=== PATIENT | male | born 1945 ===

== ENCOUNTER 2018-04-04 13:15 | Inpatient (IN) | payer OTHER ==
[~2018-04-04] VITALS: Ht 160 cm; Wt 68.0 kg
[2018-04-05] MEDS ORDERED: [UNRECOGNIZED DRUG - OTHER] PO (09:18)
[2018-04-12] MEDS ORDERED: ZESTORETIC 10-1 EACH PO (09:13)
[2018-04-13] MEDS ORDERED: DOCUSATE SODIU100 MG PO (08:07)
[2018-04-13] MEDS ORDERED: PERCOCET 5-3251 EACH PO (08:08)
[2018-04-13] MEDS ORDERED: CLONAZEPAM0.5 MG PO (08:08)
== END 2018-04-13 17:28 | disposition home or self-care (01) | DRG 454 ==
LOC: O/R 04-12 05:00 → SURH 04-12 05:00
PROVIDERS: ADMIT Orthopaedic Surgery Orthopaedic Surgery of the Spine
PROC: 0RG20A0 Fusion of 2 or more Cervical Vertebral Joints with Interbody Fusion Device, Anterior Approach, Anterior Column, Open Approach (ICD-10-PCS; 2018-04-12)
PROC: 0RG20J1 Fusion of 2 or more Cervical Vertebral Joints with Synthetic Substitute, Posterior Approach, Posterior Column, Open Approach (ICD-10-PCS; 2018-04-12)
PROC: 07DS3ZZ Extraction of Vertebral Bone Marrow, Percutaneous Approach (ICD-10-PCS; 2018-04-12)
PROC: 0RT30ZZ Resection of Cervical Vertebral Disc, Open Approach (ICD-10-PCS; principal; 2018-04-12 10:15)
DX: M47.12 Other spondylosis with myelopathy, cervical region (principal); M50.021 Cervical disc disorder at C4-C5 level with myelopathy

== ENCOUNTER 2024-02-16 10:30 | Inpatient (IN) | payer OTHER ==
[~2024-02-16] VITALS: Ht 91.4 cm; Wt 67.1 kg
[~2024-02-16 10:30] MED LIST: CLONAZEPAM0.5 MG PO; DOCUSATE SODIU100 MG PO; PERCOCET 5-3251 EACH PO; SIMVASTATIN5 MG; ZESTORETIC 10-1 EACH PO; [UNRECOGNIZED DRUG - OTHER] PO
[2024-02-16 10:31] VITALS: BP 113/75
[2024-02-21] MEDS ORDERED: PROMETHAZINE HCL 50 MG/ML AMPUL IM PRN (07:45)
[2024-02-21] MEDS ORDERED: 0.9 % SODIUM CHLORIDE 1,000 ML IV SCH (07:45)
[2024-02-21] MEDS ORDERED: ENALAPRILAT DIHYDRATE 1.25 MG/ML VIAL IV PRN (07:45)
[2024-02-21] MEDS ORDERED: AMOX-CLAV 875-1 EACH PO (07:47)
[2024-02-21] MEDS ORDERED: PERCOCET 5-3251 EACH PO (07:47)
[2024-02-21] MEDS ORDERED: COLACE100 MG PO (07:47)
[2024-02-21] MEDS ORDERED: ZOFRAN8 MG PO (07:47)
[2024-02-21] MEDS ORDERED: NEURONTIN800 MG PO (07:48)
[2024-02-21] MEDS ORDERED: GABAPENTIN100 M2 PO (07:48)
[2024-02-21] MEDS ORDERED: TAMSULOSIN HCL 0.4 MG CAP PO SCH (09:00)
[2024-02-21] MEDS ORDERED: DOCUSATE SODIUM 100MG CAP PO SCH (09:00)
[2024-02-21] MEDS ORDERED: VANCOMYCIN HCL 1,000 MG VIAL IV SCH (09:00)
[2024-02-21] MEDS ORDERED: METHYLPREDNISOLONE SOD SUCC 125 MG VIAL IV SCH (09:00)
[2024-02-21] MEDS ORDERED: CEFAZOLIN SODIUM 1,000 MG in 0.9 % SODIUM CHLORIDE 50 ML IV SCH (09:00)
[2024-02-21] MEDS ORDERED: METHYLPREDNISOLONE SOD SUCC 125 MG VIAL IV ONE ×2 (11:15)
[2024-02-21] MEDS ORDERED: HEMOSTATIC MATRIX WITH THROMBIN KIT TOP ONE (11:15)
[2024-02-21] MEDS ORDERED: VANCOMYCIN HCL 1,000 MG VIAL IV ONE (11:15)
[2024-02-21] MEDS ORDERED: CEFAZOLIN SODIUM 1,000 MG VIAL IV ONE (11:15)
[2024-02-21] MEDS ORDERED: METHYLPREDNISOLONE ACETATE 80 MG/ML VIAL IU ONE (11:15)
[2024-02-21] MEDS ORDERED: MORPHINE SULFATE 4 MG,MORPHINE SULFATE 2 MG IV SCH (12:00)
[2024-02-21] MEDS ORDERED: MORPHINE SULFATE 2 MG/ML CARTRIDGE IV ONE (13:55)
[2024-02-21] MEDS ORDERED: FAMOtidine 20 MG TABLET PO SCH (17:00)
[2024-02-21] MEDS ORDERED: ACETAMINOPHEN 500 MG GEL..CAP PO SCH (20:00)
[2024-02-21] MEDS ORDERED: GABAPENTIN 800 MG TABLET PO SCH (21:00)
[2024-02-22] VITALS (8 sets, daily range): BP systolic 112–163; BP diastolic 66–94; O2SAT 89–100
[2024-02-22] MEDS ORDERED: SODIUM CHLORIDE 0.45 % 1,000 ML IV SCH
[2024-02-22] MEDS ORDERED: OxyCODONE HCL 5 MG TABLET (ROXICODONE) PO PRN (06:01)
[2024-02-22 08:19] LABS: HEMATOCRIT 34.2 % (39.0-48.0); HEMOGLOBIN 11.9 g/dL (13-16.00); MEAN CELL VOLUME 88.8 fL (80.0-100.00); MEAN CORPUSCULAR HGB CONC 34.9 g/dl (32.0-36.0); PLATELET COUNT 144 K/uL (150-450); RED BLOOD COUNT 3.85 M/uL (4.00-6.00); RED CELL DISTRIBUTION WIDTH 14.1 % (11.5-14.5)
[2024-02-22 08:55] LABS: CALCIUM 8.1 mg/dL (8.5-10.1); CREATININE SERUM 0.88 mg/dL (0.70-1.30); GFR 83.32; POTASSIUM 3.85 mEq/L (3.5-5.1)
[2024-02-22] MEDS ORDERED: FAMOtidine 20 MG TABLET PO SCH (09:00)
[2024-02-23] VITALS: BP 113/71; O2SAT 97
[2024-02-23 02:18] VITALS: O2SAT 97
[2024-02-23 06:00] VITALS: O2SAT 99
[2024-02-23 08:25] VITALS: BP 136/67; O2SAT 96
[2024-02-23 09:29] VITALS: O2SAT 88
== END 2024-02-23 10:44 | disposition home or self-care (01) | DRG 428 ==
LOC: O/R 02-21 07:05 → SURH 02-21 10:30
PROVIDERS: ADMIT Orthopaedic Surgery Orthopaedic Surgery of the Spine; ATTEND Orthopaedic Surgery Orthopaedic Surgery of the Spine
PROC: XRGC0R7 Fusion of 2 or more Lumbar Vertebral Joints using Custom-Made Anatomically Designed Interbody Fusion Device, Open Approach, New Technology Group 7 (ICD-10-PCS; 2024-02-21)
PROC: 0ST20ZZ Resection of Lumbar Vertebral Disc, Open Approach (ICD-10-PCS; 2024-02-21)
PROC: 07DR0ZZ Extraction of Iliac Bone Marrow, Open Approach (ICD-10-PCS; 2024-02-21)
PROC: 4A1104G Monitoring of Peripheral Nervous Electrical Activity, Intraoperative, Open Approach (ICD-10-PCS; 2024-02-21)
PROC: 0SG1071 Fusion of 2 or more Lumbar Vertebral Joints with Autologous Tissue Substitute, Posterior Approach, Posterior Column, Open Approach (ICD-10-PCS; principal; 2024-02-21 12:40)
DX: M43.16 Spondylolisthesis, lumbar region (principal); M48.062 Spinal stenosis, lumbar region with neurogenic claudication